=== PATIENT | female | born 1995 | race Two or more races ===

== ENCOUNTER 2023-06-30 03:09 | Emergency (ER) | payer OTHER ==
[~2023-06-30] VITALS: Ht 157.5 cm; Wt 63.5 kg
== END 2023-06-30 04:09 | disposition home or self-care (01) ==
LOC: ER 03:09
DX: M94.0 Chondrocostal junction syndrome [Tietze] (principal)

== ENCOUNTER 2025-09-22 23:53 | Emergency (ER) | payer OTHER ==
[~2025-09-22] VITALS: Ht 160 cm; Wt 59.0 kg
[2025-09-23] MEDS ORDERED: ONDANSETRON HCL 2 MG/ML VIAL IV STA (00:32)
[2025-09-23] MEDS ORDERED: LACTOBACILLUS ACIDOPHILUS 1 CAP CAP PO STA (00:32)
[2025-09-23] MEDS ORDERED: 0.9 % SODIUM CHLORIDE 1,000 ML IV STA (00:32)
[2025-09-23] MEDS ORDERED: FAMOTIDINE/PF 20 MG/2 ML VIAL IV PUSH STA (00:32)
[2025-09-23 01:15] LABS: BASO % 0.6 % (0.1-1.2); EOS # 0.14 (0.04-0.54); EOS % 1.7 % (0.7-7.0); LYMPH # 2.24 (1.18-3.74); LYMPH % 26.5 % (19.3-53.1); MEAN PLATELET VOLUME 10.10 fl (9.4-12.4); MONO # 0.86 (0.24-0.82); MONO % 10.2 % (4.7-12.5); NEUT # 5.12 (1.56-6.13); NEUT % 60.6 % (34.0-71.1); RED CELL DISTRIBUTION WIDTH 11.9 % (11.6-14.4)
[2025-09-23 03:51] LABS: ALT/SGPT 15.0 U/L (12-78); AST/SGOT 12.0 U/L (15-37); BILIRUBIN TOTAL 0.38 mg/dL (0.3-1.2); BUN CREA RATIO 19.0 (7.0-25.0); CREATININE SERUM 0.52 mg/dL (0.55-1.02); GFR 138.46; GLOBULINA 3.9 G/DL (2.4-3.5); GLUCOSE FASTING 92.0 mg/dL (65-100); OSMOLALITY SERUM 276.0 MOSM/KG (275-295)
[2025-09-23 04:09] LABS: HCG QUANTITATIVE 40566 mUI/mL (1-3)
== END 2025-09-23 04:42 | disposition home or self-care (01) ==
LOC: ER 23:54
PROVIDERS: General Practice
DX: O26.899 Other specified pregnancy related conditions, unspecified trimester (principal); K52.9 Noninfective gastroenteritis and colitis, unspecified; A08.8 Other specified intestinal infections; R11.10 Vomiting, unspecified; R11.0 Nausea; Z91.013 Allergy to seafood